=== PATIENT | male | born 1990 | race Caucasian/White ===

== ENCOUNTER 2020-10-31 14:50 | Emergency (ER) | payer BC ==
[2020-10-31 15:09] VITALS: BP 134/86; PULSE 111; TEMP 98.6; BMI 35.9
[2020-10-31] MEDS ORDERED: ONDANSETRON 4 MG/2 ML VIAL IVPB ONE (15:35)
[2020-10-31] MEDS ORDERED: SODIUM CHLORIDE 1,000 ML IV STA (15:35)
[2020-10-31] MEDS ORDERED: ONDANSETRON 4 MG/2 ML VIAL ONE (15:55)
[2020-10-31 16:31] LABS: BASO % 0.3 % (0-2.0); EOS % 0.1 % (0-4.5); HEMATOCRIT 40.8 % (35.4-49); HEMOGLOBIN 14.5 GM/dl (11.7-16.9); LYMPH % 23.5 % (8-40); MCH 31.7 pg (25.7-33.7); MCHC 35.6 g/dl (32.0-35.9); MONO % 11.2 % (3.8-10.2); NEUT % 64.9 % (42.8-82.8); PLATELET COUNT 203 10^3/uL (134-434); RBC 4.59 M/mm3 (4.00-5.60); WHITE BLOOD COUNT 5.9 K/mm3 (4.0-10.8)
[2020-10-31 16:41] LABS: ALBUMIN 3.7 g/dl (3.4-5.0); BILIRUBIN,TOTAL 0.8 mg/dl (0.2-1); CALCIUM 8.6 mg/dl (8.5-10); TOT PROT 7.4 g/dl (6.4-8.2)
[2020-10-31] MEDS ORDERED: AZITHROMYCIN 250 MG TABLET PO ONE (16:51)
[2020-10-31] MEDS ORDERED: AZITHROMYCIN 250 MG TABLET ONE (16:59)
[2020-11-02 23:07] LABS: SARS-CoV-2 NAA Detected (Not Detected)
== END 2020-10-31 17:19 | disposition home or self-care (01) ==
LOC: FER 14:50
PROC: 3E033GC Introduction of Other Therapeutic Substance into Peripheral Vein, Percutaneous Approach (ICD-10-PCS; principal; 2020-10-31)
DX: J18.9 Pneumonia, unspecified organism (principal); R11.2 Nausea with vomiting, unspecified; R19.7 Diarrhea, unspecified
CPT/HCPCS: 36415; 71045-TC-FY; 80053; 85025; 87804; 99284-25; C9803; U0003; U0005